=== PATIENT | male | born 1990 | race Asian ===

== ENCOUNTER 2024-07-25 09:45 | Outpatient (CLI) | payer BC, MEDICAID ==
--- NOTE | 2024-07-25 15:01 | XRAY Report ---
PROCEDURE: Ankle 3+V RT INDICATIONS: SPRAIN OF OTHER LIGAMENT OF RIGHT ANKLE TECHNIQUE: 3 views of the ankle were acquired. COMPARISON: None. FINDINGS: Acute, minimally displaced fracture at the inferior tip of the lateral malleolus. Otherwise, the ankl e mortise is preserved. No talar dome osteochondral defect. Small tibiotalar joint effusion. IMPRESSION: Acute, minimally displaced Schultz A fracture of the lateral malleolus. Reviewed by: Isauro Morgan MD on 07/25/2024 2:59 PM PDT Approved by: Isauro Morgan MD on 07/25/2024 2:59 PM PDT Station ID: [id number]
== END 2024-07-25 10:00 | disposition home or self-care (01) ==
LOC: DI.N 09:45
PROVIDERS: ATTEND Physician Assistant Medical
DX: S82.61XA Displaced fracture of lateral malleolus of right fibula, initial encounter for closed fracture (principal)